=== PATIENT | male | born 1960 | race Caucasian/White ===

== ENCOUNTER 2016-11-29 08:22 | Emergency (ER) | payer OTHER ==
[2016-11-29 09:34] LABS: BASOPHIL 0.5 % (0-2); EOSINOPHIL 1.8 % (0-5); HCT 43.5 % (42.0-52.0); HGB 15.8 g/dl (13.2-18.0); LYMPHOCYTE 16.3 % (15-48); MCH 40.2 pg (25.0-31.0); MCHC 36.3 g/dL (32.0-36.0); MCV 110.7 fL (78.0-100.0); MONOCYTE 13.9 % (0-12); MPV 9.3 fL (6.0-9.5); NEUTROPHIL 67.5 % (41-80); PLT 67 K/uL (150-400); RBC 3.93 M/uL (4.70-6.00); RDW 14.1 % (11.5-14.0); WBC 3.8 K/uL (4.0-10.5)
[2016-11-29 09:41] LABS: BILIRUBIN - TOTAL 1.5 mg/dL (0.1-1.0); CREATININE 0.8 mg/dL (0.7-1.2); GLOBULIN (CALCULATION) 3.4 g/dL (2.2-4.2); POTASSIUM 3.9 mmol/L (3.5-5.1); TOTAL PROTEIN 7.4 g/dL (6.4-8.3)
== END 2016-11-29 10:45 | disposition home or self-care (01) ==
LOC: FER 08:22
PROVIDERS: Internal Medicine
DX: S20.212A Contusion of left front wall of thorax, initial encounter (principal); W19.XXXA Unspecified fall, initial encounter
CPT/HCPCS: 36415; 71101; 80053; 84484; 85025; 93005; J1170; J2405